=== PATIENT | female | born 1995 | race Caucasian/White ===

== ENCOUNTER 2024-01-30 22:02 | Emergency (ER) | payer MEDICAID ==
[2024-01-30] MEDS ORDERED: VIBRAMYCIN HYC100 MG PO (22:44)
[2024-01-30] MEDS ORDERED: Doxycycline Monohydrate 100 MG CAP PO ONE (22:45)
[2024-01-30 23:05] VITALS: BP 140/82
== END 2024-01-30 23:05 | disposition home or self-care (01) ==
LOC: ED 22:02
DX: L03.116 Cellulitis of left lower limb (principal)

== ENCOUNTER 2024-08-27 17:19 | Emergency (ER) | payer MEDICAID ==
[~2024-08-27] VITALS: Ht 177.8 cm; Wt 100.0 kg
[~2024-08-27 17:19] MED LIST: VIBRAMYCIN HYC100 MG PO
[2024-08-27] MEDS ORDERED: Ketorolac 30 MG/ML VIAL IV ONE (18:45)
[2024-08-27] MEDS ORDERED: diphenhydrAMINE 50 MG/ML 1 ML VIAL IV ONE (18:45)
[2024-08-27] MEDS ORDERED: NS 1,000 ML IV SCH ×2 (18:45→20:00)
[2024-08-27 18:57] LABS: BASO # 0.01 K/mm3 (0.02-0.10); EOS # 0.03 K/mm3 (0.04-0.40); EOS % 0.2 % (1.0-5.0); HEMATOCRIT 46.9 % (37.0-47.0); HEMOGLOBIN 15.7 g/dL (12.5-16.0); LYMPH# 0.97 K/mm3 (1.50-4.00); MEAN CELL VOLUME 97 fl (78-100); MEAN CORPUSCULAR HEMOGLOBIN 32 pg (27-31); MEAN CORPUSCULAR HGB CONC 34 g/dL (33-37); MEAN PLATELET VOLUME 9.3 fl (7.4-10.4); NEU # 14.03 K/mm3 (1.40-6.50); PLATELET COUNT 261 K/mm3 (130-400); RED BLOOD COUNT 4.85 M/mm3 (4.10-5.30); RED CELL DISTRIBUTION WIDTH 12.7 % (11.5-14.5); WHITE BLOOD COUNT 15.8 K/mm3 (4.8-10.8)
[2024-08-27 19:05] LABS: ALBUMIN 4.8 g/dL (3.5-5.0)
[2024-08-27 19:06] LABS: CALCIUM 9.8 mg/dL (8.3-10.5)
[2024-08-27 19:08] LABS: TOTAL PROTEIN 8.7 g/dL (6.4-8.3)
[2024-08-27 19:09] LABS: TOTAL BILIRUBIN 1.3 mg/dL (0.2-1.2)
[2024-08-27 20:47] LABS: URINE APPEARANCE CLOUDY (CLEAR); URINE COLOR DARK YELLOW (YELLOW)
[2024-08-27 20:52] LABS: PH-URINE 5.5 (5.0 - 8.0); URINE GLUCOSE NEGATIVE (NEGATIVE); URINE KETONE 1+ (NEGATIVE); URINE PROTEIN(semi-quant) 2+ (NEGATIVE)
[2024-08-27 20:53] LABS: URINE BILIRUBIN 2+ (NEGATIVE); URINE BLOOD NEGATIVE (NEGATIVE); URINE LEUKOCYTE ESTERASE NEGATIVE (NEGATIVE); URINE MUCUS PRESENT (NOT PRESENT); URINE NITRATE NEGATIVE (NEGATIVE)
[2024-08-27] MEDS ORDERED: Home Ondansetron ODT 4 MG #2 ODT/PACK PO ONE (21:00)
[2024-08-27] MEDS ORDERED: ZOFRAN ODT4 MG PO (21:02)
[2024-08-27 21:11] VITALS: BP 111/60
== END 2024-08-27 21:14 | disposition home or self-care (01) ==
LOC: ED 17:19
PROVIDERS: Physician Assistant
DX: K52.9 Noninfective gastroenteritis and colitis, unspecified (principal); G43.909 Migraine, unspecified, not intractable, without status migrainosus; R79.89 Other specified abnormal findings of blood chemistry
CPT/HCPCS: J0780; J1200; J1885; J7030